=== PATIENT | female | born 1955 | race Caucasian/White ===

== ENCOUNTER 2018-05-01 10:00 | Observation (INO) ==
--- NOTE | 2018-05-01 13:09 | Internal Med History&Physical ---
Date of Encounter: 05/01/18 Time of Encounter: 13:09 Internal Medicine - H&P: HPI Chief complaint: abdmonial pain Admitted From: Home Plans for Post Hospital Care: Home History of present illness: Ms. Cabrera is a 63 year old female with past medical history of diabetes, hypothyroid, possible CKD and kidney stone was transferred from another facility. Patient has been having 2 day history of abdominal pain which is sev ere in intensity on right side of her abdomen. Initially started in the front part of her abdomen later on radiating to her back. Denies any blood in urine. At [facility] ER patient was found to have 6 mm obstructing stone at the right UPJ with moderate hydronephrosis. Patient denies any fevers, chills, diarrhea or any dysuria. She did complain of nausea and 2 episodes of nonbloody nonbilious vomiting. Pain is about 8/10 in intensity which waxes and wanes. She recently finished course of antibiotics with probably azithromycin and prednisone for upper respiratory tract infection. Had history of kidney stone about 2 years ago. Patient was transferred here for further management with urology. Labs done ordered was unremarkable. Past Med Surg Social Fam HX - Past Medical History Medical history: diabetes, kidney stones, thyroid disease Additional medical history: cellulitis Psychiatric history: no psych history - Past Surgical History Surgical History: cholecystectomy Additional surgical history: Kidney stone removal surgery - Social History Smoking Status: Never smoker Smokeless Tobacco Status: No Alcohol use: rarely Drug use: none - Family History Son History Unknown: Yes Hx Family Genitourinary Disorders: Yes (Kidney stones) Mother Living Status: Age at : 58 Cause of : cancer Hx Family Cardiac Disorders: Yes Hx Family Respiratory Disorders: Yes Hx Family Cancer: Yes Hx Family GI Disorders: No Hx Family Genitourinary Disorders: No Hx Family Endocrine Disorder: No Hx Family Musculoskeletal Disorders: Yes Hx Family Neuromuscular Disorders: No Hx Family Neurologic Disorders: No Father Living Status: Age at : 87 Cause of : pulmonary related Hx Family Cancer: Yes (Emphysema) Hx Family Endocrine Disorder: Yes (DM) Internal Medicine - H&P: Meds Diazepam [Valium] 5 mg PO Q8-10H PRN #10 tablet 10/26/14 [Rx] OxyCODONE/APAP 5/325 [Percocet 5/325 MG] 1 each PO Q6HR PRN #12 tablet 10/22/16 [Rx] Tamsulosin [Flomax] 0.4 mg PO DAILY #14 cap.er.24h 10/22/16 [Rx] Allergy/AdvReac Type Severity Reaction Status Date / Time sulfamethoxazole Allergy Swelling Verified 05/01/18 13:26 [From Bactrim] of Lip/Tongue/Throat trimethoprim [From Bactrim] Allergy Swelling Verified 05/01/18 13:26 of Lip/Tongue/Throat All Systems PM: A 10-system review of systems was performed and is negative for pertinent findings except as documented above in the HPI. - Constitutional Vitals: Temp Pulse Resp BP Pulse Ox 97.6 F 70 18 138/70 99 05/01/18 11:35 05/01/18 11:35 05/01/18 11:35 05/01/18 11:35 05/01/18 11:35 Exam: Constitutional: Vitals as noted. Conversant. No Apparent Distress. Obese Eyes : Sclera white, conjunctiva clear, no lid lag, PEARLA. Respiratory : Clear to auscultation bilaterally. No accessory muscle use, rales, rhonchi or wheezes Cardiovascular : RRR, +S1, +S2. no murmur, gallop, rubs. No chest wall tenderness GI/Abdominal : Soft, Rt sided abdominal and Rt CVA tenderness on palpatioin. BS present. No guarding or rigidity Musculoskeletal: no deformity noted. 1+ edema or cyanosis. warm extremities, pulses palpable and symmetrical in UE/LE. no calf tenderness. Neurological: AO X3, CN II-XII grossly intact, grossly normal motor and sensory exam. Skin: No skin rash, lesions or ulcers noted. Pych: Good insight and judgement. Intact memory. AOx3. - Assessment and plan (1) Ureterolithiasis Current Visit: No Status: Acute Assessment and plan: - CT findings with 6 mm stone right UPJ with moderate right hydronephrosis. - Does not appear to have UTI or signs of infection/sepsis - To get cystoscopy and Rt ureteral stent placement given pain and hydronephrosis. - Monitor renal function and signs of infection. Hold off antibiotics for now. - Urology following. (2) Diabetes Current Visit: Yes Status: Acute Assessment and plan: - NPO for now - insulin sliding scale and accuchecks q6h - appears to be uncontrolled based on a1c in [facility] - Will need close outpatient follow up or modification of regimen on discharge Qualifiers: Diabetes mellitus type: type 2 Qualified Code(s): E11.9 - Type 2 diabetes mellitus without complications (3) HTN (hypertension) Current Visit: Yes Status: Acute Assessment and plan: - BP stable - Will resume home BP medication(HCTZ) when confirmed. Qualifiers: Hypertension type: essential hypertension Qualified Code(s): I10 - Essential (primary) hypertension (4) Hypothyroid Current Visit: Yes Status: Acute Assessment and plan: - resume home medication when confirmed Qualifiers: Qualified Code(s): E03.9 - Hypothyroidism, unspecified (5) Intractable pain Current Visit: Yes Status: Acute (6) Hydronephrosis Current Visit: Yes Status: Acute Assessment and plan: as above Qualifiers: Hydronephrosis type: with ureteropelvic junction obstruction Qualified Code(s): Q62.11 - Congenital occlusion of ureteropelvic junction - Time Spent With Patient Total time spent is greater than 50% in coordination of care (as documented) at patient's floor/unit and/or counseling patient:
[2018-05-01] MEDS ORDERED: *HR* FentaNYL (PF) 100 MCG/2 ML VIAL IVP PRN ×2 (13:11→22:15)
[2018-05-01] MEDS ORDERED: Ketorolac 30 MG/ML VIAL IM PRN (13:11)
--- NOTE | 2018-05-01 13:12 | Urology - Consult Note ---
Date of Encounter: 05/01/18 Time of Encounter: 13:10 - Assessment and Plan (1) Intractable pain Current Visit: Yes Status: Acute (2) Ureterolithiasis Current Visit: No Status: Acute Assessment and plan: Because of the patient's degree of pain I do not feel that trial of passage is appropriate. She is in agreement and wishes to proceed with intervention. Due to the proximal nature of the stone will elect to perform a cystoscopy and right ureteral stent placement. Patient has been scheduled today. We discussed the procedure in detail which includes infection, stricture, perforation, stent complications, reaction to contrast. Patient understands she will require a staged stone extraction or ESWL. Appreciate hospitalist assistance with admission. Urology CN:HPI Consult date: 05/01/18 Reason for consult Urology: Hydronephrosis History of present illness: 63-year-old female history of kidney stones. Transferred from [place] with severe intractable flank pain. CT scan confirms a 6 mm right ureteropelvic junction stone. She continues to hurt at this time but it is a little "better" . no fever. She has been on antibiotics for an upper respiratory infection. She has had nausea. Past Med Surg Social Fam HX - Past Medical History Medical history: diabetes, kidney stones, thyroid disease Additional medical history: cellulitis Psychiatric history: no psych history - Past Surgical History Surgical History: cholecystectomy Additional surgical history: Kidney stone removal surgery - Social History Smoking Status: Never smoker Smokeless Tobacco Status: No Alcohol use: rarely Drug use: none - Family History Son History Unknown: Yes Hx Family Genitourinary Disorders: Yes (Kidney stones) Medications and Allergies Diazepam [Valium] 5 mg PO Q8-10H PRN #10 tablet 10/26/14 [Rx] OxyCODONE/APAP 5/325 [Percocet 5/325 MG] 1 each PO Q6HR PRN #12 tablet 10/22/16 [Rx] Tamsulosin [Flomax] 0.4 mg PO DAILY #14 cap.er.24h 10/22/16 [Rx] Allergy/AdvReac Type Severity Reaction Status Date / Time No Known Allergies Allergy Verified 10/26/14 09:53 Review of Systems - Constitutional fatigue, no fever(s) - EENT Nose, mouth and throat: no dizziness - Cardiovascular no chest pain - Respiratory no cough - Gastrointestinal abdominal pain, nausea - Genitourinary Genitourinary: flank pain - Musculoskeletal back pain - Integumentary no erythema - Neurological no confusion - Psychiatric no anxiety - Hematologic/Lymphatic no easy bleeding - Allergic/Immunologic no throat swelling Exam Initial Vital Signs Temp Pulse Resp BP Pulse Ox 97.6 F 70 18 138/70 99 05/01/18 11:35 05/01/18 11:35 05/01/18 11:35 05/01/18 11:35 05/01/18 11:35 - General physical appearance Present: no distress, moderate pain - Eyes Present: PERRL, conjunctiva is clear - ENT Present: normal nares - Neck Present: no masses - Respiratory Present: normal respiratory effort - Cardiovascular Cardiovascular exam IM: RRR - Abdomen Abdomen: Present: soft. Absent: suprapubic tenderness - Integumentary Present: no rash, no growths, no abnormal pigmentation - Neurologic Present: normal coordination. Absent: disoriented, confused - Additional Findings Mild right CVA tenderness Urology Results - Labs All other labs normal. Consult Discharge Plan - Plan Referrals: NONE,PCP [Primary Care Provider] -
[2018-05-01] MEDS ORDERED: Ondansetron 4 MG/2 ML VIAL IVP PRN ×2 (14:07→22:15)
[2018-05-01] MEDS ORDERED: Insulin LISPRO 300 UNITS/3 ML VIAL SQ SCH (18:00)
--- NOTE | 2018-05-01 18:43 | Anesthesia Evaluation PreOp ---
Date of Encounter: 05/01/18 Time of Encounter: 18:41 - Past History Planned Operation: Cystoscopy, Right Ureteral Stent Cardiac History: Denies any Significant Hx (- Past Medical History Medical history: diabetes, kidney stones, thyroid disease Additional medical history: cellulitis Psychiatric history: no psych history - Past Surgical History Surgical History: cholecystectomy Additional surgical history: Kidney stone removal surgery - Social History Smoking Status: Never smoker Smokeless Tobacco Status: No Alcohol use: rarely Drug use: none) Pulmonary History: Denies Any Significant HX FOOD SERVICE ORDER CLERK History: Denies Any Significant HX Other Medical History: Renal (stone, Hydronephrosis), Diabetes Type II, Thyroid Anesthesia History: Past Anesthesia (GB, Renal stones) : No Alcohol Use: rarely Drug use: none Medications and Allergies OxyCODONE/APAP 5/325 [Percocet 5/325 MG] 1 each PO Q6HR PRN #12 tablet 10/22/16 [Rx] Levothyroxine [Synthroid] 25 mcg PO 0630 05/01/18 [History] Allergy/AdvReac Type Severity Reaction Status Date / Time sulfamethoxazole Allergy Swelling Verified 05/01/18 13:26 [From Bactrim] of Lip/Tongue/Throat trimethoprim [From Bactrim] Allergy Swelling Verified 05/01/18 13:26 of Lip/Tongue/Throat - Meds/Allergy Pre-op Review Medications Reviewed: Yes Allergies Reviewed: Yes Beta Blockers on Current Med List: No Anesthesia Results - Labs Laboratory Tests 05/01/18 05/01/18 08:01 08:01 WBC 10.2 Hgb 13.1 Hct 38.5 Plt Count 265 Sodium 137 Potassium 3.5 Chloride 95 L Carbon Dioxide 32 H BUN 22 Creatinine 1.05 Anesthesia Exam Vital Signs/O2 Sat, Most Current Temp Pulse Resp BP Pulse Ox 97.6 F 69 16 115/65 96 05/01/18 11:35 05/01/18 18:20 05/01/18 18:20 05/01/18 18:20 05/01/18 18:20 NPO (# of Hours): > 8 hrs Pain Scale: 0 Pain Scale Used: Numeric (1 - 10) - HEENT Pupil (Motor): Pupils equal, EOMI Mallampati: II Teeth: Poor dentition Oral Opening: Greater than 3 - FOOD SERVICE ORDER CLERK LOC: Oriented FOOD SERVICE ORDER CLERK Motor: Normal RUE, Normal LUE, Normal RLE, Normal LLE, Normal Face FOOD SERVICE ORDER CLERK Sensory: Normal: RUE, LUE, RLE, LLE, Face - Cardiac Rhythm: Regular Murmur: None JVD: No Carotid Bruit: No - Pulmonary Breath Sounds: bilateral Clear Respiratory Effort: Symmetrical Anesthesia Assess/Plan ASA Score: 2 Autologous Blood: Yes Monitoring Plan: Standard Monitors Recovery Plan: PACU
[2018-05-01] MEDS ORDERED: Ondansetron 4 MG/2 ML VIAL IVP ONE (18:46)
[2018-05-01] MEDS ORDERED: *HR* HYDROmorphone (PF) 1 MG/ML SYRINGE IVP PRN (18:46)
[2018-05-01] MEDS ORDERED: *HR* OxyCODONE Immed Rel 5 MG TABLET PO PRN (18:46)
[2018-05-01] MEDS ORDERED: *HR* Promethazine 25 MG/ML VIAL IVP PRN (18:46)
[2018-05-01] MEDS ORDERED: *HR* Labetalol 20 MG/4 ML SYRINGE IVP PRN (18:46)
[2018-05-01] MEDS ORDERED: *HR* Propofol 200 MG/20 ML VIAL IVP ONE (18:58)
[2018-05-01] MEDS ORDERED: *HR* Midazolam HCl 2 MG/2 ML VIAL ONE (19:00)
[2018-05-01] MEDS ORDERED: *HR* FentaNYL (PF) 100 MCG/2 ML VIAL ONE (19:00)
[2018-05-01] MEDS ORDERED: Ondansetron 4 MG/2 ML VIAL ONE (19:02)
[2018-05-01] MEDS ORDERED: Lidocaine -MPF 2% 2 ML VIAL ONE (19:02)
--- NOTE | 2018-05-01 19:25 | Operative Note ---
Date of procedure: 05/01/18 Pre-op diagnosis: 6 mm right ureteropelvic junction stone Post-op diagnosis: same Procedure: Cystoscopy. Right retrograde pyelogram. Right ureteral stent placement. Anesthesia: GETA Surgeon: Tuan Peck Was there an licensed physical therapy assistant present: No Estimated blood loss (cc): 0 Specimen: None Condition: stable Procedure in Detail: PROCEDURE IN DETAIL: Patient was taken back to the operating room, positioned supine on the operating table. Anesthesia was applied without complication. They were moved into dorsal lithotomy. Careful attention was maintained to cushion all pressure points for patient's safety. They were prepped and draped in sterile fashion. Time-out was performed with the proper patient and procedure. A 21-Iranian rigid cystoscope was inserted into the bladder without difficulty. Systematic examination of bladder revealed no abnormalities. The right ureteral orifice was cannulated using a 5-Iranian ureteral Catheter and a retrograde pyelogram was performed using Isovue. A filling defect was identified which corresponded to the stone. At that point, a zip wire was placed through the 5-Iranian and confirmed in the renal pelvis with fluoroscopy. A 4.8 x 26 stent was placed over the zip wire and confirmed in the renal pelvis and bladder. The bladder was drained.
[2018-05-01] MEDS ORDERED: Dexamethasone 4 MG/ML VIAL ONE (20:00)
--- NOTE | 2018-05-01 20:44 | Anesthesia Evaluation Post Op ---
Date of Encounter: 05/01/18 Time of Encounter: 20:43 - Vital Signs Vital Signs: Vital Signs/O2 Sat, Most Current Temp Pulse Resp BP Pulse Ox 97.4 F L 66 16 114/65 98 05/01/18 20:16 05/01/18 20:36 05/01/18 20:36 05/01/18 20:36 05/01/18 20:36 - Lungs Lungs: Clear Ascult./Percussion - Airway Airway: Non-obstructed - Cardiovascular Regular Rate - Mental Status Mental Status: Alert & Oriented, Answers Appropriately - Pain Pain Scale: 0 Pain Scale used: Numeric (1 - 10) - Nausea Vomiting Nausea Vomiting: Not Present - Hydration Hydration: Ice chips, Has not voided - Discharge PostOp Status: Transfer Patient to floor
[2018-05-01] MEDS ORDERED: Acetaminophen IV 1,000 MG/100 ML INFUS..BTL IVPB PRN (22:15)
[2018-05-01] MEDS ORDERED: Ketorolac 15 MG/ML VIAL IVP PRN (22:15)
[2018-05-01] MEDS ORDERED: *HR* Belladonna Alkaloids/Opium 30 MG RECTAL SUPPOSITORY RC PRN (22:15)
[2018-05-02] MEDS ORDERED: Levothyroxine 25 MCG TABLET PO SCH (06:30)
[2018-05-02 06:38] LABS: BUN/Creatinine Ratio 22 (6-26); Blood Urea Nitrogen 24 mg/dL (8-23); Calcium 8.5 mg/dL (8.6-10.3); Carbon Dioxide 29 mEq/L (23-29); Chloride 101 mEq/L (98-107); Glucose 361 mg/dL (70-105); Osmolality,Calculated 301 (280-300); Potassium 4.6 mEq/L (3.5-5.1); Sodium 136 mEq/L (136-145); eGFR For Non-African Americans 50 (> 60)
[2018-05-02] MEDS ORDERED: Insulin LISPRO 300 UNITS/3 ML VIAL SQ SCH ×3 (07:30→21:00)
--- NOTE | 2018-05-02 08:58 | Urology Progress Note ---
Date of Encounter: 05/02/18 Time of Encounter: 08:57 - Assessment and Plan (1) Intractable pain Current Visit: Yes Status: Acute (2) Ureterolithiasis Current Visit: No Status: Acute Assessment and plan: Okay to discharge from urology standpoint. Stent remains in place. My office will contact patient to schedule for ureteroscopic stone extraction as an outp atient. Okay to take AZO [id number] for stent discomfort. No other activity restrictions. Progress Note Subjective: feels better Narrative: Patient states she feels much better today. All nausea and pain resolved Objective Initial Vital Signs Temp Pulse Resp BP Pulse Ox 97.6 F 70 18 138/70 99 05/01/18 11:35 05/01/18 11:35 05/01/18 11:35 05/01/18 11:35 05/01/18 11:35 - General physical appearance Present: no distress, no pain - Labs 05/02/18 05:44 Diabetes panel 05/02/18 Range/Units 05:44 Sodium 136 (136-145) mEq/L Potassium 4.6 D (3.5-5.1) mEq/L Chloride 101 (98-107) mEq/L Carbon Dioxide 29 (23-29) mEq/L BUN 24 H (8-23) mg/dL Creatinine 1.10 (0.60-1.20) mg/dL Glucose 361 H (70-105) mg/dL Calcium 8.5 L (8.6-10.3) mg/dL Calcium panel 05/02/18 Range/Units 05:44 Calcium 8.5 L (8.6-10.3) mg/dL Pituitary panel 05/02/18 Range/Units 05:44 Sodium 136 (136-145) mEq/L Potassium 4.6 D (3.5-5.1) mEq/L Chloride 101 (98-107) mEq/L Carbon Dioxide 29 (23-29) mEq/L BUN 24 H (8-23) mg/dL Creatinine 1.10 (0.60-1.20) mg/dL Glucose 361 H (70-105) mg/dL Calcium 8.5 L (8.6-10.3) mg/dL Adrenal panel 05/02/18 Range/Units 05:44 Sodium 136 (136-145) mEq/L Potassium 4.6 D (3.5-5.1) mEq/L Chloride 101 (98-107) mEq/L Carbon Dioxide 29 (23-29) mEq/L BUN 24 H (8-23) mg/dL Creatinine 1.10 (0.60-1.20) mg/dL Glucose 361 H (70-105) mg/dL Calcium 8.5 L (8.6-10.3) mg/dL Consult Discharge Plan - Plan Referrals: Selma Viera CNP [Advanced Practice Nurse] - Tuan Peck MD [Partnered Physician] -
[2018-05-02 10:28] VITALS: BP 106/65
--- NOTE | 2018-05-02 11:14 | Discharge Summary ---
- NOTES TO OUTPATIENT PROVIDER Notes to Outpatient Provider: Patient would like to manage uncontrolled diabetes mellitus (HbA1C 8.4%) through PCP, no changes made during this hospitalization Date of Encounter: 05/02/18 Time of Encounter: 11:06 - Discharge Diagnosis (1) Ureterolithiasis Priority: Primary Status: Acute Hospital course: Per H&P: ""Ms. Cabrera is a 63 year old female with past medical history of diabetes, hypothyroid, possible CKD and kidney stone was transferred from another facility. Patient has been having 2 day history of abdominal pain which is severe in intensity on right side of her abdomen. Initially started in the front part of her abdomen later on radiating to her back. Denies any blood in urine. At [facility] ER patient was found to have 6 mm obstructing stone at the right UPJ with moderate hydronephrosis. Patient denies any fevers, chills, diarrhea or any dysuria. She did complain of nausea and 2 episodes of nonbloody nonbilious vomiting. Pain is about 8/10 in intensity which waxes and wanes. She recently finished course of antibiotics with probably azithromycin and prednisone for upper respiratory tract infection. Had history of kidney stone about 2 years ago. Patient was transferred here for further management with urology. Labs done ordered was unremarkable."" (1) Ureterolithiasis CT showed 6 mm stone right UPJ with moderate right hydronephrosis. She did not have S/S of UTI or infection/sepsis. She underwent cystoscopy and right ureteral stent placement on 05/01/18. Her pain resolved, and she was deemed stable for discharge by Urology. She may take AZO [id number] for stent discomfort. No other activity restrictions. (2) Diabetes, uncontrolled HbA1C 8.4% in February, and had uncntrolled glucose in the hospital. She appears to be on metformin + sulfonylurea per OP records, but reports only taking metformin at this time. Also, she reports just completing a course of oral steorids for ? rheumatoid arthritis which has resulted in acute increase in glucose levels. I discussed changing her diabetes management, but she is being discharged today and prefers to follow with PCP, whom she can see as soon as Friday per her report. (3) HTN (hypertension) - Cont HCTZ Her other medical problems remained stable. Discharge discussed with: patient, nurse - Time Spent with Patient Total time spent providing and/or coordinating discharge services: Greater than 30 minutes - Discharge Medications Home Medications: OxyCODONE/APAP 5/325 [Percocet 5/325 MG] 1 each PO Q6HR PRN #12 tablet 10/22/16 [Rx] Levothyroxine [Synthroid] 100 mcg PO 0630 05/02/18 [History] Metformin HCl 1,000 mg PO BID 05/02/18 [History] Omeprazole [PriLOSEC] 05/02/18 [History] hydroCHLOROthiazide [Hydrochlorothiazide] 12.5 mg PO 05/02/18 [History] Allergies/Adverse Reactions: Allergy/AdvReac Type Severity Reaction Status Date / Time sulfamethoxazole Allergy Swelling Verified 05/01/18 13:26 [From Bactrim] of Lip/Tongue/Throat trimethoprim [From Bactrim] Allergy Swelling Verified 05/01/18 13:26 of Lip/Tongue/Throat Date of admission: 05/01/18 11:26 Primary care physician: PCP NONE Discharging clinician: Kaitlynn Todd - Constitutional Vitals: Temp Pulse Resp BP Pulse Ox 98.5 F 80 14 106/65 96 05/02/18 10:25 05/02/18 10:25 05/02/18 10:25 05/02/18 10:25 05/02/18 10:25 Exam: Constitutional: Vitals as noted. Conversant. No Apparent Distress. Obese. Ambulating in room Eyes : Sclera white, conjunctiva clear, Respiratory : Clear to auscultation bilaterally. No accessory muscle use, rales, rhonchi or wheezes Cardiovascular : RRR, +S1, +S2. no murmur, gallop, rubs. No chest wall tenderness GI/Abdominal : Soft, No abdominal tenderness on palpation. No guarding or rigidity Musculoskeletal: no deformity noted. No edema or cyanosis. Warm extremities, pulses palpable and symmetrical in UE, no calf tenderness. Neurological: AO X3, no dysarthria, grossly normal motor and sensory exam. Skin: No skin rash, lesions or ulcers noted. Pych: Good insight and judgment. Intact memory. AOx3. - Patient Status Disposition: Home, Self-Care Condition: Good Functional capacity at discharge: independent ambulation Overall status at discharge: patient is back to baseline - Discharge Instructions Instructions: Percutaneous Nephrolithotomy (DC), Urethral Stent Placement (DC) Follow Up With: Selma Viera CNP [Advanced Practice Nurse] - Tuan Peck MD [Partnered Physician] - Additional Instructions: 1. Keep your self well hydrated 2. Discuss with your PCP about further control of diabetes. - Diet and Activity Activity: resume usual activities as tolerated Diet: advance to your usual diet, diabetic diet
== END 2018-05-02 12:42 | disposition home or self-care (01) ==
LOC: 2SOUTHHOLD → 3ANU 18:31
PROVIDERS: ADMIT Internal Medicine; ATTEND Internal Medicine